=== PATIENT | male | born 1945 | race Caucasian/White ===

== ENCOUNTER → 2017-01-06 | Outpatient (CLI) | payer OTHER, MEDICARE | LOC: FCPNEURO 21:30 | PROVIDERS: ATTEND Student in an Organized Health Care Education/Training Program | DX: G47.33 Obstructive sleep apnea (adult) (pediatric) (principal) ==

== ENCOUNTER → 2017-02-13 | Outpatient (CLI) | payer OTHER, MEDICARE | LOC: FIMAGING 10:06 | PROVIDERS: ATTEND Internal Medicine | DX: Z13.820 Encounter for screening for osteoporosis (principal); M81.0 Age-related osteoporosis without current pathological fracture ==

== ENCOUNTER → 2018-06-12 | Outpatient (CLI) | payer OTHER, MEDICARE | LOC: BMCIMAGING 16:55 | PROVIDERS: ATTEND Family Medicine | DX: R05 Cough (principal) ==

== ENCOUNTER → 2018-07-14 | Outpatient (CLI) | payer OTHER, MEDICARE | LOC: FIMAGING 15:10 | PROVIDERS: ATTEND Internal Medicine | DX: R91.1 Solitary pulmonary nodule (principal); R05 Cough; R06.02 Shortness of breath; R06.2 Wheezing; R09.89 Other specified symptoms and signs involving the circulatory and respiratory systems; I25.10 Atherosclerotic heart disease of native coronary artery without angina pectoris; R16.1 Splenomegaly, not elsewhere classified; Z87.891 Personal history of nicotine dependence; Z85.72 Personal history of non-Hodgkin lymphomas ==

== ENCOUNTER → 2018-08-30 | Outpatient (CLI) | payer OTHER, MEDICARE | LOC: BHFA 09:00 | PROVIDERS: ATTEND Internal Medicine Cardiovascular Disease | DX: I25.10 Atherosclerotic heart disease of native coronary artery without angina pectoris (principal) | CPT/HCPCS: 78452; 93017; A9500 ==

== ENCOUNTER → 2018-10-14 | Outpatient (CLI) | payer OTHER, MEDICARE | LOC: FIMAGING 08:38 ==